=== PATIENT | male | born 1995 | race Caucasian/White ===

== ENCOUNTER 2017-03-06 15:37 | Emergency (ER) | payer MEDICAID ==
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
[2017-03-06] MEDS ORDERED: IBUPROFEN 600 MG TABLET PO ONE (17:05)
--- NOTE | 2017-03-07 01:16 | RADIOLOGY REPORT ---
EXAM: RIBS, LEFT W/PA CHEST HISTORY: LEFT RIB PAIN, INJURY LAST NIGHT. TECHNIQUE: Five views. COMPARISON: None. FINDINGS: CHEST: The heart is not enlarged. No mediastinal mass. No acute infiltrate or vascular congestion identified. LEFT RIBS: No fracture or acute osseous abnormality identified. No destructive or erosive change. No pneumothorax. IMPRESSION: 1. UNREMARKABLE CHEST. 2. UNREMARKABLE LEFT RIBS. JOB NUMBER: [id number] MTDD
== END 2017-03-06 17:13 | disposition home or self-care (01) ==
LOC: ER 15:37
DX: S20.212A Contusion of left front wall of thorax, initial encounter (principal); V86.69XA Passenger of other special all-terrain or other off-road motor vehicle injured in nontraffic accident, initial encounter
CPT/HCPCS: 99283

== ENCOUNTER 2017-10-03 12:07 | Emergency (ER) | payer BC ==
--- NOTE | 2017-10-03 12:36 | Emergency Department Record ---
Anxiety - General Chief Complaint: Anxiety Stated Complaint: ANXIETY Time Seen by Provider: 10/03/17 12:26 Source: Patient Mode of Arrival: Ambulatory Limitations: No limitations - History of Present Illness Initial Comments: The patient is here for anxiety and restlessness. 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 He was discharged on 14 days of multiple psych. medicines (Wellbutrin , Abilify, and Trazadone ) but now has run out. Additionally he was on Benzodiazapines at [facility] also. For the last 4 days he has felt mildly restless, anxious, shaky, and nauseated. Due to not being able to get into a psychiatrist or family doctor he came in here for evaluation. The patient is not suicidal or homicidal. MD Complaint: Anxiety Onset/Timin -: Days(s) Symptoms: Muscle cramps, Other Place: Home Previous History of Same: Yes Severity: Moderate Quality: Intermittant Provoking factors: None known Improves With: Nothing Worsens With: Nothing Associated symptoms: Headaches, Nausea/vomiting - Related Data Allergies/Adverse Reactions: Allergies Allergy/AdvReac Type Severity Reaction Status Date / Time No Known Drug Allergies Allergy Verified 10/03/17 12:21 Travel Screening - Travel/Exposure Within Last 30 Days Have you traveled within the last 30 days?: No Review of Systems Constitutional: Denies: Chills, Fever Eyes: Denies: Eye discharge ENT: Denies: Congestion Respiratory: Denies: Cough, Dyspnea Past Medical History - SOCIAL HISTORY Smoking Status: Current every day smoker Alcohol Use: None Drug Use: None - RESPIRATORY Hx Respiratory Disorders: No - CARDIOVASCULAR Hx Cardio Disorders: No - NEURO Hx Neuro Disorders: No - GI Hx GI Disorders: No - Hx Genitourinary Disorders: No - ENDOCRINE Hx Endocrine Disorders: No - MUSCULOSKELETAL Hx Musculoskeletal Disorders: No - PSYCH Hx Psych Problems: Yes Hx Anxiety: Yes - HEMATOLOGY/ONCOLOGY Hx Hematology/Oncology Disorders: No Family Medical History Any Significant Family History?: No Physical Exam - General General Appearance: Alert, Oriented x3, Cooperative, No acute distress - Head Head exam: Atraumatic, Normocephalic, Normal inspection - Eye Eye exam: Normal appearance, PERRL - ENT Throat exam: Normal inspection. negative: Tonsillar erythema, Tonsillar exudate - Neck Neck exam: Normal inspection, Full ROM. negative: Tenderness - Respiratory Respiratory exam: Normal lung sounds bilaterally. negative: Respiratory distress - Cardiovascular Cardiovascular Exam: Regular rate, Normal rhythm, Normal heart sounds - GI/Abdominal GI/Abdominal exam: Soft, Normal bowel sounds. negative: Tenderness - Extremities Extremities exam: Normal inspection, Full ROM, Normal capillary refill. negative: Tenderness - Neurological Neurological exam: Alert, Normal gait. negative: Abnormal gait, Motor sensory deficit - Psychiatric Psychiatric exam: Anxious Course Vital Signs 10/03/17 12:16 Temperature 98.9 F Pulse Rate 77 Respiratory 20 Rate Blood Pressure 143/81 Pulse Ox 98 - Reevaluation(s) Reevaluation #1: The patient is doing better at this time and appears very calm and cooperative. He clearly is not suicidal or homicidal and feels stable for home. We will discharge him with an Ativan for home and he is to F/U with Psych. RICCI. 10/03/17 13:31 10/03/17 14:19 Medical Decision Making - Lab Data Result diagrams: 10/03/17 12:40 10/03/17 12:40 Disposition Disposition: Discharge Clinical Impression: Drug withdrawal Qualifiers: Substance type: other psychoactive substance Qualified Code(s): F19.939 - Other psychoactive substance use, unspecified with withdrawal, unspecified Disposition: Home, Self-Care Condition: (2) Stable Instructions: Social Anxiety Disorder (ED) Additional Instructions: Please take the Ativan as directed this evening. Please see your family doctor or Psychiatrist later this week when possible and return to the ER for any worsening symptoms. Forms: Patient Portal Access Time of Disposition: 13:34 Quality - Quality Measures Quality Measures: N/A - Blood Pressure Screening View Details: Yes Does Patient Have Any of the Following: No Blood Pressure Classification: Pre-Hypertensive BP Reading Systolic Measurement: 143 Diastolic Measurement: 81 Screening for High Blood Pressure: < Pre-Hypertensive BP, F/U Documented > [ G8950] Pre-Hypertensive Follow-up Interventions: Referral to alternative/primary care provider.
[2017-10-03] MEDS ORDERED: LORAZEPAM 0.5 MG TABLET PO ONE ×2 (12:38→13:34)
[2017-10-03 12:52] LABS: BASO % 0.6 % (0-6); EOS % 1.8 % (0-6); GRAN % 52.1 % (47-80); HEMATOCRIT 45.3 % (42.0-52.0); HEMOGLOBIN 15.4 gm/dl (14.0-18.0); LYMPH % 39.1 % (16-45); MEAN CORPUSCULAR HEMOGLOBIN 29.9 pg (27-33); MEAN PLATELET VOLUME 9.1 fl (7.4-10.4); MONO % 6.4 % (0-9); PLATELET COUNT 311 K/uL (130-400); RED BLOOD COUNT 5.15 M/uL (4.40-5.70); RED CELL DISTRIBUTION WIDTH 13.5 % (11.5-14.5); WHITE BLOOD COUNT W/O DIFF 7.2 K/uL (4.2-12.2)
[2017-10-03 13:00] LABS: BLOOD UREA NITROGEN 16 mg/dL (6-20); CREATININE 0.7 mg/dL (0.7-1.2); EST GLOMERULAR FILTRATION RATE > 60 mL/min
[2017-10-03 13:01] LABS: TOTAL PROTEIN 7.9 g/dL (6.6-8.7)
[2017-10-03 13:03] LABS: GLUCOSE,RANDOM 106 mg/dL (74-109)
[2017-10-03 13:05] LABS: AMPHETAMINE SCREEN URINE NOT DETECTED; BARBITURATE SCREEN URINE NOT DETECTED; BENZODIAZEPINE SCREEN URINE NOT DETECTED; COCAINE SCREEN URINE NOT DETECTED; METHADONE SCREEN URINE NOT DETECTED; METHAMPHETAMINE SCREEN NOT DETECTED; OPIATE SCREEN URINE NOT DETECTED; OXYCODONE SCREEN URINE NOT DETECTED; PHENCYCLIDINE SCREEN URINE NOT DETECTED; PROPOXYPHENE SCREEN URINE NOT DETECTED; THC SCREEN URINE DETECTED; TRICYCLIC ANTIDEPRESSANT SCRN NOT DETECTED
[2017-10-03 13:06] LABS: ALB/GLOB RATIO 1.7 (1.1-1.8); ALKALINE PHOSPHATASE 67 U/L (40-129); ALT/SGPT 49 U/L (<41); AST/SGOT 24 U/L (10.0-50.0)
== END 2017-10-03 13:49 | disposition home or self-care (01) ==
LOC: ER 12:07
DX: F19.939 Other psychoactive substance use, unspecified with withdrawal, unspecified (principal); R11.0 Nausea; R25.2 Cramp and spasm; R45.1 Restlessness and agitation; R51 Headache; F17.210 Nicotine dependence, cigarettes, uncomplicated
CPT/HCPCS: 80053; 80305; 85025; 99283; 99284

== ENCOUNTER 2018-10-28 18:09 | Emergency (ER) | payer BC ==
[2018-10-28] MEDS ORDERED: Diph,Pert(Acell),Tet Vac 0.5 ML SYR IM ONE (18:22)
[2018-10-28] MEDS ORDERED: CEPHALEXIN 500 MG CAPSULE PO STA (18:23)
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
--- NOTE | 2018-10-31 12:18 | RADIOLOGY REPORT ---
EXAM: RIGHT HAND HISTORY: PAIN AND SWELLING. TECHNIQUE: Three views of the right hand were obtained. FINDINGS: There is no evidence of fracture or dislocation. There is dorsal soft tissue swelling, but no evidence of radiopaque foreign body. IMPRESSION: NEGATIVE RIGHT HAND EXAMINATION. JOB NUMBER: [id number] MTDD
== END 2018-10-28 18:59 | disposition home or self-care (01) ==
LOC: ER 18:09
DX: S60.221A Contusion of right hand, initial encounter (principal); S61.411A Laceration without foreign body of right hand, initial encounter; L03.113 Cellulitis of right upper limb; W22.8XXA Striking against or struck by other objects, initial encounter; F17.210 Nicotine dependence, cigarettes, uncomplicated
CPT/HCPCS: 90715; 96372; 99283